=== PATIENT | female | born 1995 | race Caucasian/White ===

== ENCOUNTER 2017-10-01 21:26 | Emergency (ER) | payer MEDICAID ==
[~2017-10-01] VITALS: Ht 149.9 cm; Wt 68.0 kg
[2017-10-01 21:29] VITALS: BP_SYST 136
[2017-10-01 21:59] LABS: BILIRUBIN,URINE NEGATIVE (NEGATIVE); BLOOD, URINE NEGATIVE (NEGATIVE); CLARITY/URINE HAZY (CLEAR); COLOR,URINE YELLOW (YELLOW); GLUCOSE,URINE NEGATIVE (NEGATIVE); KETONES,URINE NEGATIVE (NEGATIVE); LEUKOCYTE ESTERASE ,URINE NEGATIVE (NEGATIVE); NITRITE, URINE NEGATIVE (NEGATIVE); PH,URINE 7.5 (5.0-8.0); PROTEIN URINE NEGATIVE (NEGATIVE); UROBILINOGEN,URINE 0.2 (0.2-1.0)
[2017-10-01 22:09] LABS: BACTERIA,URINE FEW /HPF (None Seen); MUCUS,URINE None Seen /LPF (None Seen)
[2017-10-01 22:10] LABS: URINE AMORPHOUS PHOSPHATES 2+ /HPF (None Seen)
[2017-10-01 22:11] LABS: RBC,URINE 0-3 /HPF (0-3)
[2017-10-01 23:00] VITALS: BP_SYST 120
[2017-10-01] MEDS ORDERED: ONDANSETRON 4 MG ODT TAB PO ONE (23:00)
[2017-10-01] MEDS ORDERED: IBUPROFEN 800 MG TABLET PO ONE (23:00)
== END 2017-10-01 23:00 | disposition home or self-care (01) ==
LOC: SED 21:26
DX: S06.9X9A Unspecified intracranial injury with loss of consciousness of unspecified duration, initial encounter (principal); N39.0 Urinary tract infection, site not specified; F41.9 Anxiety disorder, unspecified; R03.0 Elevated blood-pressure reading, without diagnosis of hypertension; W19.XXXA Unspecified fall, initial encounter; Y93.E1 Activity, personal bathing and showering; Y92.89 Other specified places as the place of occurrence of the external cause; Y99.8 Other external cause status
CPT/HCPCS: 70450; 81000; 99285; Q0162